=== PATIENT | female | born 1965 | race Caucasian/White ===

== ENCOUNTER → 2018-04-28 | Day surgery (SDC) | payer OTHER ==
[~2018-04-28] MED LIST: BUSP10TA PO; DESV50TA PO; DEXT10TA23 PO; ESTR2TAB PO; FENT1PAT91 TD; HYDR-2765 PO; HYDROmorphone 2 MG/ML VIAL IV PRN; IV RINGERS,LACTATED 1000ML 1,000 ML IV SCH; LAMO150T3 PO; LIDOCAINE 1% PF 2 ML VIAL. ID PRN; LIDOCAINE 1% PF 2 ML VIAL. ONE; MORPHINE SULFATE 2 MG/ML VIAL. IV PRN; ONDANSETRON PF 4 MG/2 ML VIAL. IV PRN; PROCHLORPERAZINE 10 MG/2 ML VIAL. IV PRN; PROPOFOL 40 ML IV ONE; ZOLP10TA PO; fentaNYL PF VIAL 100 MCG/2 ML VIAL IV PRN
[2018-04-28 08:04] VITALS: BP 124/54
== END | disposition home or self-care (01) ==
LOC: SURG 06:50
PROVIDERS: ATTEND Internal Medicine Gastroenterology
DX: Z12.11 Encounter for screening for malignant neoplasm of colon (principal); K64.0 First degree hemorrhoids; F41.9 Anxiety disorder, unspecified; D64.9 Anemia, unspecified; M19.90 Unspecified osteoarthritis, unspecified site; F32.9 Major depressive disorder, single episode, unspecified; Z85.828 Personal history of other malignant neoplasm of skin; Z82.49 Family history of ischemic heart disease and other diseases of the circulatory system; F17.210 Nicotine dependence, cigarettes, uncomplicated; Z79.899 Other long term (current) drug therapy; Z90.710 Acquired absence of both cervix and uterus; Z98.890 Other specified postprocedural states
CPT/HCPCS: 45378; J2704

== ENCOUNTER → 2019-02-02 | Outpatient (CLI) | payer OTHER ==
[2018-04-28 08:04] VITALS: BP 124/54
[~2019-02-02] MED LIST changes: -HYDROmorphone 2 MG/ML VIAL IV PRN; -IV RINGERS,LACTATED 1000ML 1,000 ML IV SCH; -LIDOCAINE 1% PF 2 ML VIAL. ID PRN; -LIDOCAINE 1% PF 2 ML VIAL. ONE; -MORPHINE SULFATE 2 MG/ML VIAL. IV PRN; -ONDANSETRON PF 4 MG/2 ML VIAL. IV PRN; -PROCHLORPERAZINE 10 MG/2 ML VIAL. IV PRN; -PROPOFOL 40 ML IV ONE; -fentaNYL PF VIAL 100 MCG/2 ML VIAL IV PRN
--- NOTE | 2019-02-03 14:14 | KCIC ---
Left knee 3 views. HISTORY: Left knee pain, M 25.562 3 views were taken of the left knee. There is no fracture or joint effusion or acute osseous abnormality. IMPRESSION: 1. Negative left knee. Electronically signed by: Rafael Diaz MD (02/03/2019 2:11 PM) [facility]
== END | disposition home or self-care (01) ==
LOC: KCIC 15:43
PROVIDERS: ATTEND Family Medicine
DX: M25.562 Pain in left knee (principal)
CPT/HCPCS: 73562

== ENCOUNTER → 2020-06-25 | Outpatient (CLI) | payer OTHER ==
[2018-04-28 08:04] VITALS: BP 124/54
[~2020-06-25] MED LIST changes: +REGADENOSON 0.4 MG/5 ML DISP.SYRIN. IV ONE
--- NOTE | 2020-06-25 14:43 | CARD ---
MR#: [id number] Date of Study: 06/25/2020 Ordering Physician: DELPHINE MAYERS, Referring Physician: DELPHINE MAYERS, Tech: Tessa Knox [facility] APPROVED REPORT EXAM: Two-dimensional and M-mode echocardiogram with Doppler and color Doppler. Other Information Quality : Fair INDICATION Murmur 2D DIMENSIONS RVDd2.1 (2.9-3.5cm)Left Atrium(2D)2.5 (1.6-4.0cm) IVSd0.6 (0.7-1.1cm)Aortic Root(2D)2.3 (2.0-3.7cm) LVDd4.0 (3.9-5.9cm)LVOT Diameter2.0 (1.8-2.4cm) PWd0.8 (0.7-1.1cm)LVDs2.7 (2.5-4.0cm) FS (%) 33.7 %SV44.3 ml LVEF(%)63.1 (>50%) Aortic Valve AoV Peak Jameson.112.2cm/sAoV VTI20.2cm AO Peak GR.5.0mmHgLVOT Peak Jameson.92.9cm/s AO Mean GR.2mmHgAVA (VMAX)2.48cm2 RUKHSANA (VTI)2.70cm2 Mitral Valve MV E Yskmzbtk47.9cm/sMV DECEL SXEB142gu MV A Qkkfbdoh71.8cm/sE/A Ratio1.0 Tricuspid Valve TR P. Asnlqfln194yi/sRAP FVHJYSVH2xgAa TR Peak Gr.69ctYfSXJU73dcVh Pulmonary Vein S1 Sciwrqad05.7cm/sD2 Hrqjwmno62.2cm/s LEFT VENTRICLE The left ventricle is normal size. There is normal left ventricular wall thickness. The left ventricu lar systolic function is normal and the ejection fraction is within normal range. The Ejection Fracti on is 60-65%. There is normal LV segmental wall motion. The left ventricular diastolic function and f illing is normal for age. RIGHT VENTRICLE The right ventricle is normal size. The right ventricular systolic function is normal. ATRIA The left atrium size is normal. The right atrium size is normal. The interatrial septum is intact wit h no evidence for an atrial septal defect or patent foramen ovale as noted on 2-D or Doppler imaging. AORTIC VALVE The aortic valve is not well visualized but appears to be functioning normally by Doppler interrogati on. Doppler and Color Flow revealed no significant aortic regurgitation. There is no significant aort ic valvular stenosis. MITRAL VALVE The mitral valve is calcified but opens well. There is no evidence of mitral valve prolapse. There is no mitral valve stenosis. Doppler and Color Flow revealed no mitral valve regurgitation noted. TRICUSPID VALVE The tricuspid valve is normal in structure and function. Doppler and Color Flow revealed trace to mil d tricuspid regurgitation. The PA pressure was estimated at 25 mmHg. There is no tricuspid valve sten osis. PULMONIC VALVE The pulmonic valve is not well visualized. Doppler and Color Flow revealed no pulmonic valvular regur gitation. There is no pulmonic valvular stenosis. GREAT VESSELS The aortic root is normal in size. The ascending aorta is not well seen. The IVC is normal in size an d collapses >50% with inspiration. PERICARDIAL EFFUSION There is no evidence of significant pericardial effusion. Critical Notification Critical Value: No <Conclusion> The left ventricle is normal size. The left ventricular systolic function is normal and the ejection fraction is within normal range. The Ejection Fraction is 60-65%. Doppler and Color Flow revealed no significant aortic regurgitation. There is no significant aortic valvular stenosis. Doppler and Color Flow revealed no mitral valve regurgitation noted. Doppler and Color Flow revealed trace to mild tricuspid regurgitation. The PA pressure was estimated at 25 mmHg. Signed by : Delphine Mayers MD Electronically Approved : 06/25/2020 14:42:27
--- NOTE | 2020-06-25 15:29 | RAD ---
MR#: [id number] Date of Study: 06/25/2020 Ordering Physician: DELPHIEN MAYERS, Referring Physician: BISHNU MONREO Tech: RT Rose (R) (N) APPROVED REPORT Test Type: Pharmacological Stress Nurse/Tech: Sharmila Su RN Test Indications: CP, Upper back pain, SOB, lightheaded Cardiac History: See EMR. Medications: See EMR. Medical History: Smoker, See EMR. Resting ECG: SR Resting Heart Rate: 68 bpm Resting Blood Pressure: 105/65mmHg Pretest Chest Pain: No chest pain Nurse/Tech Notes Lungs CTA, Heart tones regular. Consent: The procedure was explained to the patient in lay terms. Informed consent was witnessed. Lucas eout was entered into [place]. History and Stress Test performed by RAH Dias, BIPIN (R) (N) Pharm. Details Pharmacologic stress testing was performed using 0.4mg per 5ml of regadenoson given intravenously ove r 7-10 seconds. Stress Symptoms Dyspnea POST EXERCISE Reason for Termination: Infusion complete Max HR: 93 bpm Max Blood Pressure: 117/47mmHg Blood Pressure response to exercise: Normal blood pressure response during stress. Heart Rate response to exercise: WNL Chest Pain: No. Arrhythmia: No. INTERPRETATION Stress EKG Conclusion: The resting EKG shows a sinus rhythm with an incomplete right bundle branch bl ock. The stress EKG shows no significant changes from baseline. No EKG evidence of stress-induced ischemia. Imaging Protocol IMAGE PROTOCOL: Rest Tc-99m/stress Tc-99m 1 day Rest: Stress: Viability: Radiopharm.Tc99m FvjzjmuvaDa40v Sestamibi Dose10.5mCi 30mCi Duration 13min. 13min. Img Date 06/25/2020 06/25/2020 Inj-Img Pocf66efz. 60min. Rest Admin Site:IV - Right AntecubitalAdministrator:RT Rose (R)(N) Stress Admin Site: IV - Right AntecubitalAdministrator: RAH Dias, BIPIN (R)(N) STRESS DATA End Diast. Vol.56.0mlLVEDV index BSA33.0ml End Syst. Vol.12.0mlLVESV index BSA7.0ml Myocardial Ztor169.0gEject. Bwvlhnxd90.0% Stress Scores Regional WT1.00Summed WT2.00 Regional WM0.00Summed WM8.00 LV Perfusion The stress scans show no significant defects. The rest scans show no significant defects. Nuclear imaging shows no reversible ischemia or infarct. Wall Motion Left ventricular systolic function is normal with an ejection fraction of greater than 70%. LV Perf. Quant 17 Seg. SSS0.00 17 Seg. SRS0.00 17 Seg. SDS0.00 Stress Defect Extent (% LAD)0.00Rest Defect Extent (% LAD)0.00Rev. Defect Extent (% LAD)0.00 Stress Defect Extent (% LCX) 0.00Rest Defect Extent (% LCX)0.00Rev. Defect Extent (% LCX)0.00 Stress Defect Extent (% RCA)0.00Rest Defect Extent (% RCA)0.00Rev. Defect Extent (% RCA)0.00 Stress Defect Extent (% KENDRA)0.00Rest Defect Extent (% KENDRA)0.00Rev. Defect Extent (% KENDRA)0.00 Conclusion 1. No EKG evidence of stress-induced ischemia. 2. Nuclear imaging shows no reversible ischemia or infarct. 3. Normal LV systolic function with an ejection fraction of greater than 70%. 4. Low risk Lexiscan nuclear stress test. Signed by : Delphine Mayers MD Electronically Approved : 06/25/2020 15:28:42
== END ==
LOC: NM 10:32
PROVIDERS: ATTEND Internal Medicine Cardiovascular Disease
DX: I07.1 Rheumatic tricuspid insufficiency (principal); Z87.891 Personal history of nicotine dependence
CPT/HCPCS: 78452; 93017; 93306; A9500; J2785